=== PATIENT | male | born 1940 | race Caucasian/White ===

== ENCOUNTER 2025-03-12 09:31 | Inpatient (IN) | payer MEDICARE ==
[~2025-03-12] VITALS: Ht 175.3 cm; Wt 93.5 kg
[2025-03-12 10:14] LABS: VENOUS BASE EXCESS 4.3 (-2.0-2.0); VENOUS HCO3 29.6 MMOL/L (23.0-27.0); VENOUS O2 SATURATION 59.8 % (60.0-80.0); VENOUS PARTIAL PRESSURE CO2 46.7 mmHg (38.0-50.0); VENOUS PARTIAL PRESSURE O2 32.9 mmHg (30.0-50.0); VENOUS PH 7.420 UNITS (7.330-7.430); VENOUS STANDARD HCO3 27.3 MMOL/L; VENOUS TOTAL CO2 31.0 MMOL/L (24.0-28.0)
[2025-03-12] MEDS: ONDANSETRON 4MG 2ML VIAL IV ONE (10:18)
[2025-03-12] MEDS: NS 500 ML IV ONE (10:18)
[2025-03-12 10:20] LABS: PLATELET COUNT, AUTOMATED 259 10^3/uL (150-450)
[2025-03-12 10:30] LABS: INR 1.23
[2025-03-12 10:41] LABS: EOSINOPHILS 1 % (0-3); LYMPHOCYTES 19 % (16-44); METAMYELOCYTES 12 % (0-0); MONOCYTES 9 % (0-5); NEUTROPHILS 19 % (28-66); PLATELET ESTIMATE NORMAL (NORMAL)
[2025-03-12 10:46] LABS: ALT/SGPT 20.0 U/L (7.0-40); AST/SGOT 31.0 U/L (<34); CALCIUM LEVEL 10.2 MG/DL (8.3-10.6); CARBON DIOXIDE LEVEL 30.0 MMOL/L (20-31); CHLORIDE LEVEL 89.0 MMOL/L (98-107); CREATININE FOR GFR 3.38 MG/DL (0.70-1.30); GLOMERULAR FILTRATION RATE 17.3 (>35); POTASSIUM SERUM 4.7 MMOL/L (3.5-5.1); SODIUM LEVEL 140.0 MMOL/L (136-145)
[2025-03-12 10:56] LABS: C REACTIVE PROTEIN QUANTITATIV 12.39 MG/DL (<1.0)
[2025-03-12] MEDS ORDERED: ONDANSETRON 4MG 2ML VIAL IV PRN (13:05)
[2025-03-12] MEDS ORDERED: TRAM50TA2 PO (13:08)
[2025-03-12] MEDS ORDERED: ALLO100T PO (13:08)
[2025-03-12] MEDS ORDERED: FOLI1TAB11 PO (13:08)
[2025-03-12] MEDS ORDERED: FURO40TA2 PO (13:08)
[2025-03-12] MEDS ORDERED: METO100T5 PO ×2 (13:08)
[2025-03-12] MEDS ORDERED: ROSU40TA81 PO (13:08)
[2025-03-12] MEDS ORDERED: BENA25CA4 PO (13:08)
[2025-03-12] MEDS ORDERED: THERTAB52 PO (13:08)
[2025-03-12] MEDS ORDERED: LEVO112T2 PO (13:08)
[2025-03-12] MEDS ORDERED: ASPI81TA26 PO (13:08)
[2025-03-12] MEDS ORDERED: POTA-151 PO (13:08)
[2025-03-12] MEDS ORDERED: VITA200010 PO (13:08)
[2025-03-12] MEDS ORDERED: FERR325T3 PO (13:09)
[2025-03-12] MEDS ORDERED: HOME MED LIST COMPLETE! XX SCH (13:10)
[2025-03-12] MEDS: NS (Normal Saline) 0.9% 1,000 ML IV ONE ×2 (13:28→14:52)
[2025-03-12] MEDS: PIPERACILLIN/TAZOBACTAM SOD 3.375 GM in DEXTROSE 5% (D5W) ADV/MINI-BAG 50 ML IV ONE (13:29)
[2025-03-12] MEDS ORDERED: PIPERACILLIN/TAZOBACTAM SOD 3.375 GM in DEXTROSE 5% (D5W) ADV/MINI-BAG 50 ML IV SCH (14:05)
[2025-03-12] MEDS ORDERED: NITROGLYCERIN 0.4 MG SUBL TABLET SL PRN (14:45)
[2025-03-12] MEDS: PANTOPRAZOLE 40MG VIAL IV SCH (14:51)
[2025-03-12 15:04] LABS: CHOLESTEROL LEVEL 152.0 MG/DL (<200); CHOLESTEROL RISK RATIO 2.69 (<5); LDL CHOLESTEROL 57.5 MG/DL (<100); NON-HDL-C 95.7 MG/DL; TRIGLYCERIDES LEVEL 191.0 MG/DL (<150)
[2025-03-12] MEDS: NS (Normal Saline) 0.9% 1,000 ML IV SCH (17:10)
[2025-03-12 17:16] LABS: ESTIMATED AVERAGE GLUCOSE 105.0 MG/DL (60-110)
[2025-03-12 17:37] VITALS: BP 100/58; TEMP 97.8; O2SAT 93
[2025-03-12 19:56] VITALS: BP 95/54; TEMP 97.5; O2SAT 92
[2025-03-12] MEDS: HEPARIN SOD 5000 UNITS/ML 1 ML VIAL/SYRINGE SC SCH (20:12)
[2025-03-12] MEDS: PIPERACILLIN/TAZOBACTAM SOD 4.5 GM in DEXTROSE 5% (D5W) ADV/MINI-BAG 50 ML IV SCH (20:12)
[2025-03-12 23:58] VITALS: BP 76/40; TEMP 97.2; O2SAT 92
[2025-03-13] VITALS (16 sets, daily range): BP systolic 85–117; BP diastolic 44–59; TEMP 97–97.4; O2SAT 90–98
[2025-03-13] MEDS: NS (Normal Saline) 0.9% 1,000 ML IV ONE ×2 (00:13→11:40)
[2025-03-13] MEDS: LACTATED RINGER'S 1000 ML IV ONE (02:19)
[2025-03-13] MEDS: LR 1,000 ML IV ONE (03:49)
[2025-03-13 04:12] LABS: PLATELET COUNT, AUTOMATED 156 10^3/uL (150-450)
[2025-03-13 04:54] LABS: ALT/SGPT 16.0 U/L (7.0-40); AST/SGOT 28.0 U/L (<34); CALCIUM LEVEL 7.4 MG/DL (8.3-10.6); CARBON DIOXIDE LEVEL 31.0 MMOL/L (20-31); CHLORIDE LEVEL 99.0 MMOL/L (98-107); CREATININE FOR GFR 3.55 MG/DL (0.70-1.30); GLOMERULAR FILTRATION RATE 16.3 (>35); POTASSIUM SERUM 4.4 MMOL/L (3.5-5.1); SODIUM LEVEL 144.0 MMOL/L (136-145)
[2025-03-13] MEDS: MORPHINE 4 MG/ML 1 ML VIAL IV PRN (05:09)
[2025-03-13] MEDS ORDERED: VANCOMYCIN HCL 1,000 MG, VIAL MATE ADAPTER 1 EACH in NS 250 ML IV SCH (07:15)
[2025-03-13] MEDS ORDERED: VANCOMYCIN INTERMITTENT/PULSE DOSING BY CLINICAL PHARMACIST PER DOSING PROTOCOL XX SCH (08:00)
[2025-03-13 08:30] LABS: EOSINOPHILS 1 % (0-3); LYMPHOCYTES 24 % (16-44); MONOCYTES 2 % (0-5); NEUTROPHILS 56 % (28-66)
[2025-03-13 08:31] LABS: PLATELET ESTIMATE DECREASED (NORMAL)
[2025-03-13] MEDS: VANCOMYCIN HCL 1,500 MG, VIAL MATE ADAPTER 1 EACH in NS 500 ML IV ONE (10:26)
[2025-03-13] MEDS: LR 1,000 ML IV SCH (15:29)
[2025-03-13] MEDS: NOREPINEPHRINE 4MG IN D5 250ML 4 MG in IV 1 EA IV SCH (16:26)
[2025-03-14] VITALS (11 sets, daily range): BP systolic 113–142; BP diastolic 58–68; TEMP 97–97.6; O2SAT 94–99
[2025-03-14 05:36] LABS: BASO # 0.1 10^3/uL (0.0-0.2); BASO % 0.9 % (0.0-1.0); EOS # 0.0 10^3/uL (0.0-0.5); EOS % 0.3 % (0.0-3.0); LYMPH # 0.4 10^3/uL (1.5-5.0); LYMPH % 4.9 % (24.0-44.0); MONO # 0.6 10^3/uL (0.0-0.8); MONO % 7.2 % (2.0-8.0); NEUTROPHILS # 7.5 10^3/uL (1.5-8.5); NEUTROPHILS % 84.5 % (36.0-66.0); PLATELET COUNT, AUTOMATED 146 10^3/uL (150-450)
[2025-03-14 05:52] LABS: VANCOMYCIN RANDOM 15.9 UG/ML
[2025-03-14 06:04] LABS: ALT/SGPT 19.0 U/L (7.0-40); AST/SGOT 28.0 U/L (<34); CALCIUM LEVEL 7.6 MG/DL (8.3-10.6); CARBON DIOXIDE LEVEL 29.0 MMOL/L (20-31); CHLORIDE LEVEL 105.0 MMOL/L (98-107); CREATININE FOR GFR 3.54 MG/DL (0.70-1.30); GLOMERULAR FILTRATION RATE 16.4 (>35); MAGNESIUM LEVEL 6.0 MG/DL (1.8-2.4); PHOSPHORUS LEVEL 6.8 MG/DL (2.4-5.1); POTASSIUM SERUM 4.2 MMOL/L (3.5-5.1); SODIUM LEVEL 147.0 MMOL/L (136-145)
[2025-03-14] MEDS: MORPHINE 2 MG/ML 1 ML VIAL IV PRN (06:34)
[2025-03-14] MEDS ORDERED: VANCOMYCIN HCL 1,000 MG, VIAL MATE ADAPTER 1 EACH in NS 250 ML IV ONE (09:00)
[2025-03-14 11:12] LABS: APPEARANCE, URINE MANUAL TURBID (CLEAR)
[2025-03-14 11:13] LABS: COLOR, URINE MANUAL BROWN (YELLOW); PH,URINE MAN 5.0 UNITS (5.0 - 7.0)
[2025-03-14 11:14] LABS: GLUCOSE, URINE (UA) MANUAL NEGATIVE (NEGATIVE); KETONE, URINE MANUAL NEGATIVE (NEGATIVE); PROTEIN, URINE MANUAL 1+ mg/dL (NEGATIVE); SPECIFIC GRAVITY,URINE MANUAL 1.025 (1.002-1.035); UROBILINOGEN, URINE MANUAL NORMAL (NORMAL)
[2025-03-14 11:15] LABS: BILIRUBIN, URINE MANUAL OBSCURED (NEGATIVE); BLOOD URINE MANUAL POSITIVE (NEGATIVE); LEUKOCYTE ESTERASE, URINE MAN POSITIVE (NEGATIVE); NITRITE, URINE MANUAL POSITIVE (NEGATIVE)
[2025-03-14 11:18] LABS: BACTERIA, URINE SMALL AMOUNT; GRANULAR CAST, URINE 0-1 /lpf; HYALINE CAST, URINE NONE SEEN /lpf (0-1); RBC, URINE 15-20 /hpf (0-3)
[2025-03-14 11:20] LABS: SQUAMOUS EPITHELIAL CELL URINE NONE SEEN /hpf (SMALL AMT); WBC, URINE 0-1 /hpf (0-3)
[2025-03-14] MEDS: VANCOMYCIN HCL 500 MG in DEXTROSE 5% (D5W) MINI-BAG PLU 100 ML IV ONE (11:39)
[2025-03-15] VITALS (8 sets, daily range): BP systolic 105–155; BP diastolic 66–92; TEMP 97–97.8; O2SAT 78–99
[2025-03-15 05:28] LABS: PLATELET COUNT, AUTOMATED 130 10^3/uL (150-450)
[2025-03-15 05:56] LABS: ALT/SGPT 20.0 U/L (7.0-40); AST/SGOT 25.0 U/L (<34); CALCIUM LEVEL 7.5 MG/DL (8.3-10.6); CARBON DIOXIDE LEVEL 28.0 MMOL/L (20-31); CHLORIDE LEVEL 106.0 MMOL/L (98-107); CREATININE FOR GFR 3.04 MG/DL (0.70-1.30); GLOMERULAR FILTRATION RATE 19.7 (>35); MAGNESIUM LEVEL 4.8 MG/DL (1.8-2.4); PHOSPHORUS LEVEL 5.1 MG/DL (2.4-5.1); POTASSIUM SERUM 3.4 MMOL/L (3.5-5.1); SODIUM LEVEL 149.0 MMOL/L (136-145)
[2025-03-15 06:14] LABS: LYMPHOCYTES 7 % (16-44); MONOCYTES 12 % (0-5); MYELOCYTES 1 % (0-0); NEUTROPHILS 78 % (28-66)
[2025-03-15 06:15] LABS: PLATELET ESTIMATE DECREASED (NORMAL)
[2025-03-15] MEDS ORDERED: POTASSIUM CHLORIDE 10MEQ SR TABLET PO ONE (09:00)
[2025-03-15] MEDS: POTASSIUM CHLORIDE 10% LIQ 20MEQ/15ML UDC PO SCH (09:20)
[2025-03-15] MEDS ORDERED: ACETAMINOPHEN 325 MG TAB PO PRN (11:30)
[2025-03-15] MEDS ORDERED: GLUCOSE 4 GM CHEW PO PRN (11:45)
[2025-03-15] MEDS ORDERED: GLUCAGON INJ 1 MG VIAL SC PRN (11:45)
[2025-03-15] MEDS ORDERED: DEXTROSE 50% 50 ML SYRINGE IV PRN (11:45)
[2025-03-15] MEDS: KCL 20MEQ IN D5W 1000ML 1,000 ML IV SCH (11:49)
[2025-03-15] MEDS: CEFDINIR 300 MG CAP PO SCH (12:04)
[2025-03-15] MEDS: ROSUVASTATIN 10 MG TAB PO SCH (20:34)
[2025-03-15] MEDS: traMADol 50 MG TAB PO PRN (20:35)
[2025-03-15] MEDS ORDERED: CEFDINIR 300 MG CAP PO SCH (21:00)
[2025-03-16] MEDS: LEVOTHYROXINE 112 MCG TABLET (0.112 MG) PO SCH (05:31)
[2025-03-16 06:05] VITALS: BP 155/70; TEMP 97.5; O2SAT 94
[2025-03-16 06:55] LABS: BASO # 0.0 10^3/uL (0.0-0.2); BASO % 0.4 % (0.0-1.0); EOS # 0.1 10^3/uL (0.0-0.5); EOS % 1.6 % (0.0-3.0); LYMPH # 0.7 10^3/uL (1.5-5.0); LYMPH % 9.4 % (24.0-44.0); MONO # 0.7 10^3/uL (0.0-0.8); MONO % 8.7 % (2.0-8.0); NEUTROPHILS # 5.7 10^3/uL (1.5-8.5); NEUTROPHILS % 72.4 % (36.0-66.0); PLATELET COUNT, AUTOMATED 122 10^3/uL (150-450)
[2025-03-16] MEDS: FOLIC ACID 1 MG TAB PO SCH (08:19)
[2025-03-16] MEDS: FERROUS SULFATE 325 MG TAB PO SCH (08:19)
[2025-03-16 08:20] LABS: ALT/SGPT 21.0 U/L (7.0-40); AST/SGOT 29.0 U/L (<34); CALCIUM LEVEL 7.3 MG/DL (8.3-10.6); CARBON DIOXIDE LEVEL 31.0 MMOL/L (20-31); CHLORIDE LEVEL 105.0 MMOL/L (98-107); CREATININE FOR GFR 2.28 MG/DL (0.70-1.30); GLOMERULAR FILTRATION RATE 27.8 (>35); MAGNESIUM LEVEL 3.9 MG/DL (1.8-2.4); PHOSPHORUS LEVEL 2.7 MG/DL (2.4-5.1); POTASSIUM SERUM 4.1 MMOL/L (3.5-5.1); SODIUM LEVEL 143.0 MMOL/L (136-145)
[2025-03-16] MEDS: POTASSIUM CHLORIDE 10MEQ SR TABLET PO SCH (08:20)
[2025-03-16 12:00] VITALS: BP 147/76; TEMP 97.7; O2SAT 96
[2025-03-16 19:52] VITALS: BP 115/84; TEMP 97.2; O2SAT 96
[2025-03-17 04:29] VITALS: BP 154/84; TEMP 97.7; O2SAT 95
[2025-03-17 06:33] LABS: ALT/SGPT 25.0 U/L (7.0-40); AST/SGOT 35.0 U/L (<34); CALCIUM LEVEL 7.8 MG/DL (8.3-10.6); CARBON DIOXIDE LEVEL 25.0 MMOL/L (20-31); CHLORIDE LEVEL 107.0 MMOL/L (98-107); CREATININE FOR GFR 1.89 MG/DL (0.70-1.30); GLOMERULAR FILTRATION RATE 34.8 (>35); POTASSIUM SERUM 4.5 MMOL/L (3.5-5.1); SODIUM LEVEL 142.0 MMOL/L (136-145)
[2025-03-17 06:34] LABS: MAGNESIUM LEVEL 3.3 MG/DL (1.8-2.4); PHOSPHORUS LEVEL 2.4 MG/DL (2.4-5.1)
[2025-03-17 07:31] LABS: BASO # 0.0 10^3/uL (0.0-0.2); BASO % 0.3 % (0.0-1.0); EOS # 0.1 10^3/uL (0.0-0.5); EOS % 1.0 % (0.0-3.0); LYMPH # 0.6 10^3/uL (1.5-5.0); LYMPH % 7.9 % (24.0-44.0); MONO # 0.6 10^3/uL (0.0-0.8); MONO % 7.9 % (2.0-8.0); NEUTROPHILS # 5.8 10^3/uL (1.5-8.5); NEUTROPHILS % 74.2 % (36.0-66.0); PLATELET COUNT, AUTOMATED 100 10^3/uL (150-450)
[2025-03-18 00:57] LABS: HEP INDUCED PLT AB PATIENT OD 0.186 OD UNITS (<=0.300); HEPARIN INDUCED PLATELET ABY Negative (Negative)
== END 2025-03-17 11:59 | disposition home or self-care (01) | DRG 389 ==
LOC: M ED 09:31 → M ED INP 13:02 → M PCU 17:18 → M ICU 03-13 12:55 → M MSPAV 03-15 17:16
PROVIDERS: ADMIT Internal Medicine; ATTEND Internal Medicine
PROC: B246ZZZ Ultrasonography of Right and Left Heart (ICD-10-PCS; principal; 2025-03-13)
DX: K56.609 Unspecified intestinal obstruction, unspecified as to partial versus complete obstruction (principal); N17.9 Acute kidney failure, unspecified; E87.0 Hyperosmolality and hypernatremia; D50.9 Iron deficiency anemia, unspecified; E03.9 Hypothyroidism, unspecified; Z66 Do not resuscitate; I34.9 Nonrheumatic mitral valve disorder, unspecified; N18.30 Chronic kidney disease, stage 3 unspecified; M19.90 Unspecified osteoarthritis, unspecified site; G89.29 Other chronic pain; D64.9 Anemia, unspecified; I25.10 Atherosclerotic heart disease of native coronary artery without angina pectoris; M10.9 Gout, unspecified; Z86.73 Personal history of transient ischemic attack (TIA), and cerebral infarction without residual deficits; Z95.2 Presence of prosthetic heart valve; Z90.49 Acquired absence of other specified parts of digestive tract; Z92.3 Personal history of irradiation; Z92.21 Personal history of antineoplastic chemotherapy; Z95.0 Presence of cardiac pacemaker; Z96.641 Presence of right artificial hip joint; Z79.82 Long term (current) use of aspirin; Z79.890 Hormone replacement therapy; Z79.899 Other long term (current) drug therapy; Z88.8 Allergy status to other drugs, medicaments and biological substances; Z85.048 Personal history of other malignant neoplasm of rectum, rectosigmoid junction, and anus